=== PATIENT | male | born 1950 | race Caucasian/White ===

== ENCOUNTER 2019-12-16 10:29 | Inpatient (IN) ==
--- NOTE | 2019-12-16 11:42 | Diag Imaging Result Doc PS360 ---
EXAM: FLAT/UPRIGHT ABD/1 VIEW CHEST 12/16/2019 HISTORY: decreased appetite, choking TECHNIQUE: Flat and upright abdomen with upright portable chest COMMENT: There is apparent COPD. The chest is rotated to the right. There are fibrotic changes in the right upper lobe which were present on 05/24/2016. The pelvis is not included on the study. There is an apparent gastrostomy tube. There is no evidence of bowel dilatation organomegaly or mass. IMPRESSION: COPD. Electronically signed by Sy Treviño 12/16/2019 11:39 AM
[2019-12-16 11:43] LABS: BASO# 0.01 X1000 (0.0-0.2); BASO% 0.2 % (0.0-0.8); EOS# 0.02 X1000 (0.0-0.7); EOS% 0.3 % (0.0-10.0); HEMATOCRIT 42.2 % (42.0-52.0); HEMOGLOBIN 13.9 g/dL (14.0-18.0); LYMPH# 0.98 X1000 (1.2-3.4); LYMPH% 16.6 % (20.5-51.1); MCH 30.5 PG (27-31); MCHC 32.9 g/dL (33-37); MCV 92.5 FL (81-99); MONO# 0.42 X1000 (0.11-0.59); MONO% 7.1 % (1.7-9.3); MPV 9.7 FL (7.4-10.4); NEUT# 4.46 X1000 (1.4-6.5); NEUT% 75.8 % (42.2-75.2); PLT 297 X1000 (130-400); RBC 4.56 XMIL (4.7-6.1); RDW 13.7 % (11.5-14.5); WBC 5.89 X1000 (4.8-10.8)
--- NOTE | 2019-12-16 11:49 | EKG Report ---
Test Performed on : 12/16/2019 10:59:59 AM Test Reason : weakness Blood Pressure : / mmHG Vent. Rate : 072 BPM Atrial Rate : 072 BPM P-R Int : 132 ms QRS Dur : 076 ms QT Int : 408 ms P-R-T Axes : 083 073 077 degrees QTc Int : 446 ms Normal sinus rhythm. Normal ECG When compared with ECG of 03-SEP-2007 07:48, Vent. rate has decreased BY 37 BPM Unconfirmed Result
[2019-12-16 12:07] LABS: ALB/GLOB RATIO 1.4; ALBUMIN 4.1 g/dL (3.5-5.0); CREATININE 1.9 mg/dL (0.7-1.2); POTASSIUM 4.2 mmol/L (3.5-5.1); TOTAL BILIRUBIN 0.74 mg/dL (0.20-1.00)
[2019-12-16] MEDS ORDERED: NS 1,000 ML IV ONE (12:10)
--- NOTE | 2019-12-16 12:23 | PROVIDER DOCUMENTATION ---
This chart was entered by Franchesca Smith Scribe, acting as scribe for Amarilys Acosta PA. HPI-General Adult - General Chief Complaint: General Adult Stated Complaint: LOSS OF APPETITE Time Seen by Provider: 12/16/19 11:06 Source: patient Allergies/Adverse Reactions: Patient Allergies Allergy/AdvReac Type Severity Reaction Status Date / Time No Known Allergies Allergy Verified 12/16/19 11:23 Home Medications: Home Medication List Medication Instructions Recorded Confirmed Last Taken Type No Home Medications 05/24/16 12/16/19 Unknown History - History of Present Illness -Gen Adult Nature of Presenting Problems: 69wm presents to the ED with complaints of generalized weakness and loss of appe tite that has been gradually getting worse over time. He also has aching pain around his feeding tube. He has a hx of smoking, throat cancer in 2016, and epilepsy that he no longer takes medication for. He is generally unwell looking upon exam. Location of Pain/Injury: reports: abdomen (LL abd around feeding tube) Pain Radiation: reports: no radiation Quality of Pain: reports: aching Severity: reports: mild Onset/Duration: reports: gradual Timing: reports: still present, constant, changing over time, getting worse Context/Activities at Onset: reports: light activity Modifying Factors: improves with: nothing Associated Symptoms: reports: loss of appetite, weakness (generalized) Similar Symptoms Previously?: No Recently seen or treated by another doctor?: No Review of Systems - Adult - REVIEW OF SYSTEMS - ADULT Constitutional: reports: see HPI. denies: chills, fever Eyes: reports: no symptoms reported Ears, Nose, Mouth & Throat: reports: no symptoms reported Cardiovascular: reports: see HPI. denies: chest pain, palpitations Respiratory: reports: see HPI. denies: cough, shortness of breath Gastrointestinal: reports: see HPI, abdominal pain (LL around feeding tube). denies: diarrhea, nausea, vomiting Genitourinary: reports: no symptoms reported Musculoskeletal: reports: see HPI. denies: back pain, neck pain Integumentary: reports: no symptoms reported Neurological: reports: no symptoms reported Psychiatric: reports: no symptoms reported Endocrine: reports: no symptoms reported Hematologic/Lymphatic: reports: no symptoms reported Allergic/Immunologic: reports: no symptoms reported All Other Systems: Reviewed and Negative Past History - Adult - PAST MEDICAL HISTORY-ADULT Review of Records: reports: Old Records Reviewed, Nursing Assessment Review, Medications Reviewed, Social history reviewed & non-contributory. Major Childhood Illnesses: reports: denies history Cardiovascular: reports: denies history Respiratory: reports: denies history Gastrointestinal: reports: denies history Obstetrical/Gynecological: reports: denies history Genitourinary: reports: denies history Musculoskeletal: reports: denies history Neurological: reports: denies history Endocrine/Immune: reports: denies history Other Conditions: reports: denies history - IMMUNIZATION STATUS Childhood Immunizations: See Nurse Assessment Flu Vaccine: See Nurse Assessment - FAMILY HISTORY Family History: reviewed, not pertinent - SOCIAL HISTORY Smoking: cigarettes, greater than 1 pack/day Provider spent 3-5 mins advising pt. on dangers of tobacco.: Discussed manners to quit use, and f/u contacts for add'l counseling. Physical Exam-General - PHYSICAL EXAM-ADULT Initial Vital Signs Reviewed: Yes - CONSTITUTIONAL General Appearance: alert, thin, other (disheveled appearence, unkempt, clothing dirty) - EYES Eyes: PERRL/EOMI, pink conjunctivae - HEAD, EARS, NOSE, MOUTH & THROAT HENMT: moist mucous membranes - NECK Neck: non-tender, full range of motion, supple. negative: lymphadenopathy - RESPIRATORY Respiratory: chest non-tender, lungs clear, normal breath sounds. negative: crackles, rales, rhonchi, stridor, wheezing - CARDIOVASCULAR Cardiovascular: regular rate, rhythm - GASTROINTESTINAL (ABDOMEN) Abdominal Exam: normal bowel sounds, non tender, other (feeding tube in LUQ). negative: distended, guarding, rigid, rebound, tenderness, hernia, mass - MUSCULOSKELETAL Back Exam: normal inspection, no CVA tenderness, no vertebral tenderness Extremity: normal inspection - SKIN Integumentary: normal color. negative: normal turgor ("tenting" on exam) - NEUROLOGIC Neurologic: grossly normal, no motor/sensory deficits - PSYCHIATRIC Psych/Mental Status: normal thought content, normal thought process Progress - PLAN OF CARE/RESULTS Progress/Plan/Lab Results: Vital Signs - 8 hr 12/16/19 10:33 Temperature 97.2 F L Pulse Rate 71 Respiratory Rate 15 Blood Pressure 119/77 O2 Sat by Pulse Oximetry 100 Orders Category Date Time Status EKG [EKG] Stat Ther 12/16/19 11:02 Ordered Result Diagrams: 12/16/19 11:08 12/16/19 11:08 - EKG 1 Time of EKG reading by physician:: 10:59 EKG Read and Signed by:: Alexis Waterman EKG Interpretation (*Must complete 3 of following elements*): Normal Rate: 72 Rhythm: NSR [place]: normal QRS: normal AR Interval: normal - XRAY 1 XRAY: Bilateral XRAY Study: Chest, Abdomen Impression: See EMR Report (IMPRESSION: COPD. Electronically signed by Sy Treviño 12/16/2019 11:39 AM) - CONSULTS/PCP/HOSPITALIST Notification #1 *Consult/PCP/Hospitalist*: Madisyn BLOWER ROOM ATTENDANT Time Discussed: 12:20 Consult Disposition: Admit Departure - Departure Date of Disposition Decision: 12/16/19 Time of Disposition Decision: 12:10 DIAGNOSIS: Dehydration Renal failure, acute Qualifiers: Acute renal failure type: unspecified Qualified Code(s): N17.9 - Acute kidney failure, unspecified Disposition: ADMITTED INPATIENT 09 Certified Medical Emergency: Emergent Condition: Stable Referrals and Follow-Ups: None,PCP [Primary Care Provider] - Discharge Education: Steps to Quit Smoking, [id number] - Critical Care Note This patient required my direct & personal management of CC.: No Attestation - Physician/ BRIANNE Attestation Patient care was provided by Advanced Practice Provider:: Yes Advanced Practice Provider:: Amarilys Acosta Advanced Practice Provider documentation review:: The Mid-level provider documentation, treatment plan and medical decision making was reviewed by the physician who agrees with all treatment and medical decision making by the [facility]. The physician spent face to face time with patient:: Yes (Dr. Waterman at bedside to discuss admission due to dehydration and renal failure) Advanced Practice Provider documentation review:: Supervising physician onsite and consulted in the evaluation and care of this patient. The physician did have a face to face encounter with the patient. This chart was documented by the indicated scribe, (Franchesca Smith, Rehana) and accurately reflects the services I performed and decisions made by me, Amarilys Acosta PA, as attested by the provider's signature.
[2019-12-16] MEDS ORDERED: ZOFRAN IV PRN (13:36)
[2019-12-16] MEDS ORDERED: TYLENOL PO PRN (13:36)
--- NOTE | 2019-12-16 14:05 | Diag Imaging Result Doc PS360 ---
EXAM: KUB ABDOMEN - 12/16/2019 HISTORY: peg tube TECHNIQUE: Portable AP spine abdomen COMPARISON: Prior upright image of 12/16/2019 FINDINGS: The bowel gas pattern appears nonspecific and nonobstructive. There is a ring shaped marker at the superior medial most left upper quadrant which presumably relates to gastrostomy tube. This projects over the medial fundus of the stomach. No contrast has been administered through the gastrostomy tube, so the specific location of the gastrostomy tube tip is not determined. IMPRESSION: Nonspecific bowel gas pattern. Apparent marker of gastrostomy tube which projects over the medial fundus of the stomach. Electronically signed by Jorge Luu 12/16/2019 2:02 PM
[2019-12-16] MEDS: NS 1,000 ML IV SCH (14:51)
--- NOTE | 2019-12-16 15:44 | HISTORY AND PHYSICAL ---
PRIMARY CARE PROVIDER: No one. CHIEF COMPLAINT: I believe his landlord found him. He states he has been more weak. HISTORY OF PRESENT ILLNESS: Mr. Rinku Diez is a 69-year-old, male, I feel probably has a degree of dementia. He has a history of throat cancer for which he had surgery, and chemotherapy and radiation for, and a PEG tube that was placed in 2009. Currently, he is very emaciated. He only has a BMI of 12.8, 76 pounds on a 5 feet 5 inch frame. Watching him swallow liquid at the bedside, essentially was like strangulation. He had to cough it up. He has got an old PEG tube from 2009 that was placed [address] Dr[address] Vega. It appears that he has been physically cut with a black paper clamp keeping it shut. He has very unkempt. His hair is long. He is unable to say how he gets money to pay for food or how he even gets food. He states that his landlord tries to help him out. He has a decreased appetite, nausea, vomiting where he essentially throws up every time he tries to eat anything. He claims that the phlegm is pink to blood in color at times. He does have some shortness of breath with it. He has a chronic throat pain. He does have dehydration and acute kidney injury. We will go ahead and work that up and consult gastroenterology to see if we can get him back to at least a decent nutritional status prior to being discharged. PAST MEDICAL HISTORY: 1. Old records show CAD. 2. Throat cancer where he has had chemotherapy, radiation, and surgery. 3. CVA versus TIA, which he was never admitted because he left [place] and that was in 2007. 4. Most likely dementia. 5. COPD. SURGICAL HISTORY: 1. PEG [place] [address] Vega. 2. Throat surgery. SOCIAL HISTORY: He will smoke a pipe sometimes. He can smoke up to a pack per day. Started smoking in his youth. He used to be a heavy drinker but he essentially does not have access to alcohol now. No illicit drug use. He lives alone, has a landlord that checks in on him but essentially no family. FAMILY HISTORY: Mother, father unknown. ALLERGIES: No known drug allergies. HOME MEDICATIONS: None. REVIEW OF SYSTEMS: A 14 point review of systems are complete and all are negative except for those mentioned above in the HPI. PHYSICAL EXAMINATION: VITAL SIGNS: Temperature 97.2 degrees, heart rate 71, respiratory rate 15, blood pressure 119/77. He is 100% on room air, 5 feet 5 inches tall, 76 pounds. BMI is 12.8. GENERAL: Mr. Rinku Diez is a 69-year-old, very ill-appearing, emaciated, cachectic man. He is in no acute distress. He is able to carry on a conversation. He does seem a little confused. Does not have a very good memory recall. HEENT: Atraumatic, normocephalic. Pupils are equal and reactive. Extraocular movements intact. Mucous membranes are very dry. Facial structure is very obvious from being so emaciated. NECK: Trachea midline. CARDIOVASCULAR: S1, S2. Regular rate and rhythm. No rubs, gallops, murmurs. No lower extremity edema. There are +2 dorsalis and radial pulses. Negative for JVD and carotid bruits. PULMONARY: Clear to auscultate bilateral breath sounds. No accessory muscle use or work of breathing noted. GI: Soft, concave. Hypoactive bowel sounds. PEG tube with dried up drainage around the PEG tube site but no signs of infection. SKIN: Warm, dry, intact. EXTREMITIES: Moves all extremities equally with decreased range of motion. NEUROLOGIC: Oriented to name. Followed commands. Sensory is intact. LABORATORY DATA: White blood cells 5000, hemoglobin 13, hematocrit 42, platelet count 297,000. Sodium 139, potassium 4.2, BUN 63, creatinine is 1.9, glucose 110, calcium 10. Bilirubin 0.74, AST 33, ALT 18, albumin 4.1. IMAGING: EKG, normal sinus rhythm, rate 72, QTc 446. Chest x-ray one view with an upright abdomen, COPD is the impression. Abdominal x-ray, nonspecific bowel gas pattern. Apparent marker of gastrostomy tube which projects over the medial fundus of the stomach. ASSESSMENT AND PLAN: 1. Dehydration, likely secondary to poor oral intake as he is having significant dysphagia and difficulty swallowing fluids. He does have a percutaneous endoscopic gastrostomy tube that is not in use. We will do intravenous fluid hydration. 2. Acute kidney injury secondary to #1. 3. History of throat cancer with chronic throat pain and dysphagia and severe anorexia, so we will go ahead and consult Dr. Vega as he is also the same physician that put in the percutaneous endoscopic gastrostomy tube back in 2009, which has now been since cut off with probably a pair of scissors and it has like a black paper clamp on it to hold it shut. There is drainage around it but it does not appear to be infected. Imaging shows that it is actually in place. We are going to get a swallow evaluation and mechanical soft diet. 4. Severe protein calorie malnutrition. Poor appetite, poor oral intake, dysphagia, significantly emaciated. 5. Chronic obstructive pulmonary disease with a history of tobacco abuse. Cessation discussed. He is actually saturating 100% on room air and there is no difficulties with respirations at this time. He does not have any medications for it at home either. 6. History of coronary artery disease in an old report. Denies pain. 7. History of cerebrovascular accident versus transient ischemic attack. 8. Most likely some degree of dementia. 9. Deep venous thrombosis prophylaxis. Sequential compression devices. Patient seen and examined by me face to face, all the laboratory, vitals signs and images were reviewed, patient presented to the Emergency Department with signs of dehydration, SIRENA, he is cachectic as well, has a history of throat cancer and severe dysphagia, we will need to replace the PEG tube which is not working, GI will be consulted, I agree with the rest of the WINDOWS SYSTEM ADMIN's assessment and plan, Neil Trinidad MD Dictated by JEFF Snider for Neil Dodge MD cc: JEFF Snider MD MTDD
[2019-12-16 16:03] LABS: URINE SOURCE CLEAN CATCH
[2019-12-16 16:07] LABS: BILIRUBIN URINE NEGATIVE (NEGATIVE); BLOOD URINE TRACE (NEGATIVE); COLOR YELLOW; GLUCOSE URINE NEGATIVE (NEGATIVE); KETONE URINE TRACE mg/dL (NEGATIVE); LEUKOCYTES URINE MODERATE (NEGATIVE); NITRITE URINE NEGATIVE (NEGATIVE); PH URINE 5.5; PROTEIN URINE 30 mg/dL (NEGATIVE); TURBIDITY URINE CLEAR (CLEAR); UROBILINOGEN URINE NORMAL (NORMAL)
[2019-12-16 16:10] LABS: UR EPITHELIAL CELLS <10 /HPF (<10); URINE BACTERIA NEGATIVE /HPF; URINE RBC <10 /HPF (<10); URINE WBC <10 /HPF (<10)
[2019-12-16] MEDS ORDERED: CLINIMIX E 4.25%-5% SOLUTION 1,000 ML IV SCH (18:15)
[2019-12-17] MEDS: NS 1,000 ML IV SCH ×2 (05:00→23:59)
[2019-12-17 08:01] LABS: EOS# 0.04 X1000 (0.0-0.7); EOS% 0.7 % (0.0-10.0); HEMATOCRIT 34.1 % (42.0-52.0); HEMOGLOBIN 11.1 g/dL (14.0-18.0); LYMPH# 0.59 X1000 (1.2-3.4); MCH 30.2 PG (27-31); MCHC 32.6 g/dL (33-37); MCV 92.9 FL (81-99); MONO# 0.37 X1000 (0.11-0.59); MONO% 6.3 % (1.7-9.3); MPV 9.5 FL (7.4-10.4); NEUT# 4.91 X1000 (1.4-6.5); PLT 206 X1000 (130-400); RBC 3.67 XMIL (4.7-6.1); RDW 13.3 % (11.5-14.5); WBC 5.91 X1000 (4.8-10.8)
[2019-12-17 08:13] LABS: ALB/GLOB RATIO 1.6; ALBUMIN 3.6 g/dL (3.5-5.0); CALCIUM 9.1 mg/dL (8.8-10.2); CREATININE 1.2 mg/dL (0.7-1.2); MAGNESIUM 2.1 mg/dL (1.5-2.7); POTASSIUM 3.9 mmol/L (3.5-5.1); TOTAL BILIRUBIN 0.63 mg/dL (0.20-1.00); TOTAL PROTEIN 5.9 g/dL (6.3-8.3)
--- NOTE | 2019-12-17 13:56 | Diag Imaging Result Doc PS360 ---
EXAM: KUB ABDOMEN HISTORY: with gastro graphing through PEG tube. TECHNIQUE: Single view COMPARISON: 12/16/2019 FINDINGS: Oral contrast has been placed through the gastric catheter. The catheter is within the stomach superiorly along the greater curvature. No extravasation. Electronically signed by Brent Christensen 12/17/2019 1:53 PM
--- NOTE | 2019-12-17 14:15 | PROGRESS NOTE ---
DATE: 12/17/2019 SUBJECTIVE: This patient seems to be much better compared with yesterday. His kidney function is getting better. He seems to be now more euvolemic. I evaluated this patient at the same time with Dr. Vega. The plan is to exchange the PEG tube. Also, also Dr. Vega has requested a modified swallow evaluation. Every time this patient eats, he seems to be choking. He is cachectic. He has been losing weight. He came in dehydrated. He lives by himself. He is awake and oriented. PHYSICAL EXAMINATION: Vital Signs: Temperature 97.5 degrees, pulse 55, respiratory rate 18, blood pressure 146/66, oxygen saturation 96 on nasal cannula. HEENT: Head normocephalic. No trauma. PERRLA. Neck: Supple. No JVD. No masses. Central trachea. Chest: Clear to auscultation. Some crepitus at the bases. Abdomen: Soft. He has some hypoactive bowel sounds. He had a PEG tube that looks old and he has been cut. Then he put a clamp on it. Likely, this is not working and has to be changed, which will be today. Skin: Warm, dry, and intact. Neurological Examination: The patient is awake and alert. He is oriented. Extremities: No edema, no clubbing, no cyanosis. Decreased muscle mass, weakness. Laboratory: WBC 5.9, hemoglobin 11.1, hematocrit 34.1, platelets 206,000. Sodium 139, potassium 3.9, chloride 98, bicarbonate 28, BUN 45, creatinine 1.2, glucose 91, calcium 9.1. AST 29, ALT 16, alkaline phosphatase 79, albumin 3.6. ASSESSMENT AND PLAN: 1. Dehydration secondary to poor oral intake. He has significant dysphagia and we have requested a modified swallow evaluation to see how he does. He has a percutaneous endoscopic gastrostomy tube that will be exchanged today. 2. Acute kidney injury, likely secondary to severe dehydration. 3. History of throat cancer with chronic odynophagia and dysphagia with severe anorexia. Gastroenterology department on board to replace the percutaneous endoscopic gastrostomy tube. 4. Severe protein calorie malnutrition. I will get the dietitian to talk to him after the percutaneous endoscopic gastrostomy tube placement. 5. Chronic obstructive pulmonary disease with a history of tobacco abuse. Aware. He has been advised against tobacco use. I will continue with daily cessation education. 6. History of coronary artery disease with no chest pain. 7. History of cerebrovascular accident versus transient ischemic attack, no deficits. 8. Deep vein thrombosis prophylaxis with sequential compression devices. 9. I will ask the manager social services and the dietitian to evaluate this patient. He lives by himself so I do not know if he is going to be able to take care of his percutaneous endoscopic gastrostomy tube and give himself good nutrition. Probably, he needs home health. cc: Neil Dodge MD
--- NOTE | 2019-12-17 15:43 | Diag Imaging Result Doc PS360 ---
EXAM: US RENAL 2 (RETROPER) COMPLETE INDICATION: lul TECHNIQUE: COMPARISON: None. FINDINGS: There is a 3.8 cm simple appearing cysts associated with the left kidney. No solid renal masses are appreciated. The kidneys appear slightly echogenic, which is a nonspecific indicator of medical renal disease. There is no evidence of hydronephrosis. The right kidney measures 10.6 cm and the left kidney measures 8.8 cm in the greatest longitudinal axes. Both renal cortices measure up to 1.3 cm in thickness. There are multiple floating internal echoes within the urinary bladder lumen suggesting nonspecific internal debris. No definite urinary bladder wall thickening or discrete mass is identified. IMPRESSION: 1.Slightly echogenic kidneys, which is a nonspecific indicator of medical renal disease. 2.Simple appearing left renal cyst. 3.Multiple tiny echoes in the urinary bladder lumen suggesting nonspecific floating debris. Electronically signed by Rinku Simon 12/17/2019 3:40 PM
--- NOTE | 2019-12-17 19:55 | GASTROENTEROLOGY CONSULTATION ---
DATE: 12/17/2019 CONSULTING PHYSICIAN: Dr. Us. REASON FOR CONSULT: Poor p.o. nutrition, severe anorexia, dysphagia, and malfunctioning PEG tube. HISTORY: This is a 69-year-old gentleman who was brought to the emergency room with complaints of generalized weakness. The patient tells me that he had throat cancer and had a PEG tube placed almost 10 years ago and once his cancer has been treated, he has been able to eat and keep things down, but here lately he has not had much of an appetite, has not been able to eat much, and has progressively gotten weaker. He has lost a significant amount of weight. His weight is now 76 pounds. The nurses tell me that every time he tries to eat or drink, he does manage to swallow some liquid, but ends up getting strangulated and coughing up the liquid in a few minutes. He has been spitting up most of the food that he is trying to eat. He lives by himself. He had the PEG tube placed, but unfortunately it appears to be torn and he has a paper clip attached to the end of the PEG tube. He reports no problem of fever or chills. He has not had any headache or dizziness or double vision. Denies any earache, ear discharge, ringing in the ear. He has history of cough, but he says he has not had any chest pain, shortness of breath, or palpitations. He has not had any hematemesis or coffee-ground emesis. He denies dysuria, polyuria, or hematuria. He has history of constipation. PAST MEDICAL HISTORY: Significant for throat cancer for which he underwent chemotherapy and radiation therapy, and had a PEG tube placed at that time. He carries a diagnosis of COPD and coronary artery disease. He also carries a diagnosis of TIAs. SURGERY: He has had throat surgery for his cancer, chemotherapy, radiation therapy, as mentioned above, and had a PEG tube placed in 2009. MEDICATIONS: Prior to his hospitalization, he was not taking any medication. ALLERGIES: He is not known to have any drug allergies. SOCIAL HISTORY: He lives by himself, he says, and has been trying to take care of himself. FAMILY HISTORY: Noncontributory. REVIEW OF SYSTEMS: As per HPI as above. PHYSICAL EXAMINATION: General: Pleasant gentleman. He appears to be unkempt. He has overgrown facial hair, almost covering his mouth. Vital signs: Temperature is 97.6 degrees, pulse 68 per minute, breathing of 18, blood pressure was 141/75. He is 5 feet 5 inches tall and weighs 76 pounds. HEENT: Head is atraumatic, normocephalic. Eyes: Conjunctivae are normal. Sclerae are anicteric. Nares are patent. No discharge. Mouth: Buccal mucosa is moist. Throat is normal. Neck is supple. He has facial hair covering most of his neck. Chest: Clear to auscultate. He has harsh breath sounds bilaterally in the bases. Heart: S1, S2 audible. No murmur could be appreciated. Abdomen: Scaphoid, otherwise soft. He has a PEG tube in the left upper quadrant area. The PEG tube is truncated, has a paperclip attached to it. It appears that he has not been using his PEG tube. Bowel sounds are audible. Extremities: No pedal edema noted. LABORATORIES: Reviewed, which showed WBC of 5.91, hemoglobin 11.1, hematocrit 34.1, MCV is 92.9, platelets were 206. Sodium 139, potassium 3.9, chloride 98, bicarb is 28, BUN is 45, creatinine 1.2. LFTs are normal. IMPRESSION: This is a 69-year-old gentleman with history of throat cancer, status post chemotherapy, radiation therapy, and surgery. He has a percutaneous endoscopic gastrostomy tube in place which appears to be malfunctioning because it is torn into pieces. It is not being used. I am not sure how long. He has tried to eat, but unfortunately it appears that he has not been able to keep anything down substantial enough to maintain himself. He has lost weight, appears to be emaciated, and appears to have protein-calorie malnutrition. Recommendation would be to get a modified barium swallow done to ascertain the current status of his swallowing. Depending on that, we may start him on diet as suggested by the swallowing studies. In the meantime, I will replace the percutaneous endoscopic gastrostomy tube with a working tube which can be utilized to provide him nutrition and nourishment so he can sustain himself. Since he lives by himself, he will need to be educated on how to use the percutaneous endoscopic gastrostomy tube where he can feed himself through that, and if he is able to eat, we can advise in particular food. Otherwise, he may have to stay n.p.o. because of his swallowing problem. I have explained the findings and plan. The patient understands, agrees to proceed. We will replace the percutaneous endoscopic gastrostomy tube as soon as possible. cc: Mani Vega MD
--- NOTE | 2019-12-17 20:02 | GASTROENTEROLOGY CONSULTATION ---
DATE: 12/17/2019 SURGEON: Dr. Mani Vega. PREOPERATIVE DIAGNOSIS: Torn/malfunctioning percutaneous endoscopic gastrostomy tube. POSTOPERATIVE DIAGNOSIS: Torn/malfunctioning percutaneous endoscopic gastrostomy tube. PROCEDURE: Percutaneous endoscopic gastrostomy tube replacement. HISTORY: This is 69-year-old gentleman who had a PEG tube placed 10 years ago. The PEG tube is torn, and he has a paper clip attached to the end of the PEG tube. He has not been able to eat. Has not been able to feed himself through the PEG tube either. He presents with appears to be severe protein calorie malnutrition. DESCRIPTION OF PROCEDURE: Informed consent was obtained from the patient. The PEG tube was replaced at the bedside. The area was cleansed using Betadine, and with counter pressure onto the anterior abdominal wall, the old PEG tube was removed without any difficulty. The area was then cleansed and sterilized, and then a new PEG 24 was placed into the stomach using the old tract, which appeared to be matured. Once the PEG tube was in the stomach, the balloon was inflated using 20 mL of fluid. It was approximated onto the anterior abdominal wall, and the outer bumper was deployed without any problem. PLAN: I will confirm the placement by getting a KUB with Gastrografin through the PEG tube. Once the placement is confirmed, he will be started on tube feeding while awaiting the swallowing evaluation that will determine what he can eat or if he can eat. cc: Mani Vega MD MTDD
[2019-12-18] MEDS: NS 1,000 ML IV SCH (06:40)
[2019-12-18 07:26] VITALS: BP 138/77
[2019-12-18 07:31] LABS: EOS# 0.01 X1000 (0.0-0.7); EOS% 0.1 % (0.0-10.0); HEMATOCRIT 35.7 % (42.0-52.0); HEMOGLOBIN 11.9 g/dL (14.0-18.0); LYMPH# 0.54 X1000 (1.2-3.4); LYMPH% 7.8 % (20.5-51.1); MCH 30.9 PG (27-31); MCHC 33.3 g/dL (33-37); MCV 92.7 FL (81-99); MONO# 0.48 X1000 (0.11-0.59); MONO% 6.9 % (1.7-9.3); MPV 9.3 FL (7.4-10.4); NEUT# 5.92 X1000 (1.4-6.5); NEUT% 85.2 % (42.2-75.2); PLT 205 X1000 (130-400); RBC 3.85 XMIL (4.7-6.1); RDW 13.3 % (11.5-14.5); WBC 6.95 X1000 (4.8-10.8)
[2019-12-18 07:52] LABS: AGAP 14; ALB/GLOB RATIO 1.6; ALBUMIN 3.8 g/dL (3.5-5.0); ALKALINE PHOSPHATASE 73 U/L (32-122); BUN 29 mg/dL (8-22); CALCIUM 9.3 mg/dL (8.8-10.2); CHLORIDE 100 mmol/L (98-107); COSMO 286; CREATININE 1.1 mg/dL (0.7-1.2); ESTIMATED GFR > 60; GLUCOSE 85 mg/dL (70-104); GOT 34 U/L (10-34); GPT 16 U/L (10-44); MAGNESIUM 1.8 mg/dL (1.5-2.7); POTASSIUM 3.8 mmol/L (3.5-5.1); SODIUM 141 mmol/L (136-145); TCO2 27 mmol/L (25-35); TOTAL PROTEIN 6.2 g/dL (6.3-8.3)
[2019-12-18 08:21] LABS: PHOSPHORUS 2.3 mg/dL (2.7-4.5); PREALBUMIN 7.5 mg/dL (20-40)
[2019-12-18 09:02] LABS: BANDS 2 % (0-1); LYMPHS 8 % (21-51); MONO 4 % (1-9); SEGS 86 % (42-75)
--- NOTE | 2019-12-18 12:29 | Diag Imaging Result Doc PS360 ---
EXAM: BA SWALLOW W/VIDEO SPEECH THER 12/18/2019 HISTORY: Dysphagia TECHNIQUE: Modified barium swallow, 142 images, 38 seconds fluoroscopy time, seven mGy. COMMENT: There are postsurgical changes in the larynx and hypopharynx region. The larynx does not move superiorly with swallowing in a normal manner and there is a large cavity above the cords into which much of the swallowed bolus pools before eventually being swallowed or expectorated. The visualized portion of the upper esophagus never is completely distended. The possibility of stricture or cricopharyngeal achalasia cannot be excluded. There is a small amount of aspiration which is demonstrated on the last swallow. IMPRESSION: Poor laryngeal movement with pooling of swallowed material above the cords and trace aspiration. The possibility of stricture or cricopharyngeal achalasia cannot be excluded. Electronically signed by Sy Treviño 12/18/2019 12:27 PM
--- NOTE | 2019-12-18 18:30 | GASTROENTEROLOGY PROGRESS NOTE ---
DATE: 12/18/2019 SUBJECTIVE: The patient was awake and alert, sitting on the side of the bed. He is hoping to go home. He had his feeding tube replaced at the bedside by Dr. Vega yesterday. Abdominal site looks good. The patient had a modified barium swallow to check status of his swallowing done today. Findings showed poor laryngeal movement with pooling of swallow material above the cords and trace aspiration. Possibility of stricture or cricopharyngeal achalasia could not be excluded. Prior to admission the patient had not been using his tube. It had been in place for a long time and needed replacement. That was done yesterday without difficulty. OBJECTIVE: Vital signs: Temperature 97.4 degrees, pulse 61, respirations 14, blood pressure 138/77. Generally the patient is awake and alert, sitting on the side of the bed at the time of our evaluation. Abdominal PEG tube site looks good today. LABORATORY DATA: Hematology: WBC 6.95, hemoglobin 11.9, hematocrit 35.7, MCV 92.7, platelets 205,000. Chemistry: Sodium 141, potassium 3.8, chloride 100, CO2 is 27, BUN 29, creatinine 1.1, glucose 85, total bilirubin 0.70, AST 34, ALT 16, alkaline phosphatase 73. ASSESSMENT AND PLAN: 1. Malnutrition. Percutaneous endoscopic gastrostomy tube was replaced at bedside yesterday by Dr. Vega. The patient has been seen by dietitian regarding percutaneous endoscopic gastrostomy tube and feeding management. 2. Abnormal barium swallow showing possible aspiration,with poor laryngeal movement and pooling of swallowed material. Possibility of stricture or cricopharyngeal achalasia could not be excluded. Would recommend no oral foods or medications at present time. Use feeding tube. The patient has been seen by dietitian. Patient is aware of recommendations for feeding. Would recommend patient following with us in the office in 2-3 weeks. Hopefully once he has had improved nutrition, we can proceed with esophagogastroduodenoscopy for further evaluation and possible dilation if indicated. Patient is aware of plan. I have given him contact information to call and make an office visit. The patient was also seen by Dr. Vega. Dictated by JEFF Hui for Mani Vega MD cc: JEFF Diaz MD
--- NOTE | 2019-12-18 19:23 | DISCHARGE SUMMARY ---
ADMISSION DATE: 12/16/2019 DISCHARGE DATE: 12/18/2019 DISPOSITION: Home. FOLLOWUP: 1. Dr. Vega. 2. [facility]. CONSULTATION DURING THIS ADMISSION: GI was consulted, patient was seen by Dr. Vega. INVASIVE PROCEDURE DONE DURING THIS ADMISSION: None. IMAGING STUDIES OF SIGNIFICANCE: 1. A chest x-ray did show COPD. 2. Renal ultrasound shows slight echogenic kidneys. 3. Swallow evaluation showed poor laryngeal movement with pooling of swallowed material above the cords and trace aspiration. The possibility of stricture or cricopharyngeal achalasia could not be excluded. ADMISSION DIAGNOSIS: 1. Dehydration. 2. Acute kidney injury. 3. History of throat cancer. 4. Severe protein calorie malnutrition. 5. Chronic obstructive pulmonary disease with ongoing tobacco use. DIAGNOSIS AT THE TIME OF DISCHARGE: 1. Dehydration with poor oral intake. 2. Acute kidney injury secondary to volume depletion. 3. History of throat cancer with chronic odynophagia/dysphagia. 4. Severe protein calorie malnutrition. 5. Chronic obstructive pulmonary disease with ongoing tobacco use and abuse. 6. History of coronary artery disease. 7. History of cerebrovascular accident verses transient ischemic attack. 8. Wasting syndrome. DISCHARGE MEDICATIONS: No discharge medications. PRESENTING COMPLAINT: Generalized weakness. HISTORY OF PRESENTING COMPLAINT: Mr. Diez is a 69-year-old, gentleman who is known to have throat cancer status post surgery, chemotherapy and radiation, has a PEG tube since 2009, came to the emergency room after the landlord found him extremely weak and unkept. He was brought to the emergency room, was found to be remarkably emaciated and dehydrated. His creatinine was up to 1.9. He looked very unkept and protein calorie malnourished. Mr. Diez was admitted for further medical evaluation. HOSPITAL COURSE: Mr. Diez was admitted to the medical floor, was aggressively fluid resuscitated and GI was consulted for evaluation of his PEG tube, which was successfully done, was replaced. Followup contrast imaging studies revealed that the tube was in the stomach. This was started using it for both his diet and medication purposes. Mr. Diez's creatinine normalized. He says he feels a whole lot better and is requesting to see if we could discharge him, he needs to go and do some things at home according to him. Mr. Diez also did a swallow evaluation which is remarkable for poor laryngeal movement and the possibility of a stricture or a cricopharyngeal achalasia. I discussed this with the GI team. The patient has been advised to not use the oral route and just use his PEG tube for fluid, nutritional and medication use, and a followup with GI in about 2 weeks for possible EGD and dilation. These recommendations have all been discussed with Mr. Diez and he voiced understanding. We think Mr. Diez is currently stable for discharge. His current vitals are blood pressure is 138/77, pulse of 61, respirations 14, temperature 97.4 degrees. TIME SPENT: The time spent for discharge is 35 minutes. cc: Noe Irvin MD
== END 2019-12-18 15:29 | disposition home or self-care (01) | DRG 682 ==
LOC: ED 10:29 → SUATTDRO 14:04 → 3N 14:04
PROVIDERS: ATTEND Internal Medicine